=== PATIENT | male | born 1975 | race Caucasian/White ===

== ENCOUNTER 2024-02-14 16:56 | Emergency (ER) | payer SELFPAY ==
[~2024-02-14] VITALS: Ht 167.6 cm; Wt 75.0 kg
[2024-02-14 17:14] VITALS: O2SAT 100
[2024-02-14 18:26] LABS: BASOPHILS % 1.2 % (0.0-2.0); EOSINOPHILS % 8.1 % (0.0-5.0); HEMATOCRIT. 48.4 % (42.0-52.0); HEMOGLOBIN. 16.1 g/dL (14.0-18.0); MEAN CORPUSCULAR HEMOGLOBIN 32.7 pg (28.0-32.0); MEAN CORPUSCULAR HGB CONC 33.3 g/dL (31.0-37.0); MEAN CORPUSCULAR VOLUME 98.2 fL (80.0-94.0); MEAN PLATELET VOLUME 8.4 fl (7.4-10.4); MONOCYTES % 10.7 % (2.0-8.0); PLATELET 253 x1000/uL (130-400); RED BLOOD CELL COUNT 4.93 mill/uL (4.7-6.1); RED CELL DISTRIBUTION WIDTH 13.5 % (11.6-14.6); WHITE BLOOD COUNT 7.5 x1000/uL (4.5-11.0)
[2024-02-14 18:34] LABS: CHLORIDE 109 mEq/L (98-107); POTASSIUM 3.9 mEq/L (3.5-5.1); SODIUM 142 mEq/L (136-145)
[2024-02-14 18:36] LABS: CARBON DIOXIDE 24 mEq/L (21-32)
[2024-02-14 18:40] LABS: CREATININE 0.8 mg/dL (0.6-1.3)
[2024-02-14 18:41] LABS: GLUCOSE 74 mg/dL (70-105); UREA NITROGEN BLOOD 15 mg/dL (9-23)
[2024-02-14 21:37] LABS: TROPONIN I HIGH SENSITIVITY 6 ng/L (3.0-53)
[2024-02-15 00:40] VITALS: BP 138/90; PULSE 86; RESP 20; TEMP 36.55848; O2SAT 100
== END 2024-02-15 00:41 | disposition home or self-care (01) ==
LOC: ER 16:56
DX: I10 Essential (primary) hypertension (principal); R07.89 Other chest pain
CPT/HCPCS: 36415; 71045; 80048; 84484; 85025; 93005; 99285